=== PATIENT | male | born 1985 | race Two or more races ===

== ENCOUNTER 2025-02-01 07:14 | Emergency (ER) | payer SELFPAY ==
--- NOTE | 2025-02-01 07:16 | ED_ITS ---
HPI - General Adult General Chief complaint: Allergic Reaction Stated complaint: Bee sting 1-2 hrs ago, allergy. Time Seen by Provider: 02/01/25 07:16 Source: patient Mode of arrival: ambulatory Limitations: no limitations History of Present Illness ED Provider: Gosia Robles PA-C HPI narrative: Patient is a 39 year old assigned male at with a history of allergic reactions to bee stings presenting to the emergency department today after a bee sting. Patient states that there was a bee in his window sill and he got stung on his right elbow. Patient states that he is having some scratchiness in his throat and he did have to use an epi pen for this as a child. Patient states that the sting happened 2 hours ago. Patient denies any other complaints at this time. Related Data Previous Rx's ?Medication ?Instructions ?Recorded epinephrine 0.3 mg/0.3 mL 0.3 mg (0.3 mL) IM Q10M PRN 02/01/25 injection, auto-injector anaphylaxis #2 ea prednisone 20 mg tablet 40 mg (2 x 20 mg) PO DAILY C OPD 02/01/25 exacerbation 5 days #10 tabs Allergies Allergy/AdvReac Type Severity Reaction Status Date / Time bee pollen (Bee Stings) Allergy Unknown SWELLING Verified 02/01/25 07:22 Review of Systems Constitutional: Constitutional: Reports as per HPI Eyes: Eyes: Reports as per HPI ENT: Reports as per HPI Cardiovascular: Cardiovascular: Reports as per HPI Respiratory: Respiratory: Reports as per HPI Gastrointestinal: Gastrointestinal: Reports as per HPI Genitourinary: Genitourinary: Reports as per HPI Musculoskeletal: Musculoskeletal: Reports as per HPI Integumentary/Breasts: Skin/Breast: Reports as per HPI Neurologic: Reports as per HPI Psychiatric: Psychiatric: Reports as per HPI Endocrine: Endocrine: Reports as per HPI Hematologic/Lymphatic: Hematologic/Lymphatic: Reports as per HPI Allergic/Immunologic: Allergic/Immunologic: Reports as per HPI ON LICENSE OF [facility] Past Medical History Attestation statement: The following information was validated with the patient. Source: old records reviewed and nursing notes reviewed Social History Social History Smoked in Last 30 Days: Yes Use of substances other than those prescribed or required for medical reasons: No Advance Directives: No Advance Directives Information Provided: Yes Physical Exam ED Vital Signs: Vital Signs - 24 hr 02/01/25 07:20 02/01/25 08:33 02/01/25 08:43 Temperature 97.7 F 98.1 F 98.1 F Pulse Rate 103 H 81 81 Respiratory Rate 16 18 18 Blood Pressure 155/93 H 134/88 134/88 Pulse Oximetry 97 97 97 Oxygen Delivery Method Room Air Room Air Room Air BMI result Body Mass Index 26.4 Const General: cooperative, no acute distress, alert and awake Nutritional Appearance: well nourished Orientation/consciousness: patient oriented x3 HENMT Head: Yes normal to inspection and Yes atraumatic Ears: hearing grossly normal bilaterally and external ears normal General nose exam: Normal external nose present, no nasal discharge noted and no epistaxis Face and sinus: Yes normal facial exam, No abrasion and No laceration Mouth: Normal oral and palatal mucosa present, no drooling and no muffled voice Eyes General: appearance normal, both eyes and all related structures Periorbital: periorbital findings normal Eyelids: Yes eyelids normal Conjunctivae: conjunctivae normal Pupils: Equal, round and reactive pupils present EOM: EOMs intact bilaterally Neck Neck: Yes normal visual inspection and Yes full ROM Resp Effort & Inspection: normal respiratory effort and able to speak in complete sentences Neuro General: patient oriented x3, moves all extremities and CN's II-XI intact bilaterally Cranial nerves: Yes Equal, round and reactive pupils present Cognition (Neuro): normal cognition Extrem Other: minimal swelling present to the right medial elbow General: Yes full ROM and Yes capillary refill normal Psych Appearance: grossly normal Mental Status: mental status grossly normal Affect: normal affect Attitude: cooperative Thought process: Normal thought process present Thought content: Normal thought content present Insight: Good insight present (Psych) Medications Administered Discontinued Medications Generic Name Dose Route Start Last Admin Trade Name Freq PRN Reason Stop Dose Admin Diphenhydramine HCl 25 mg 02/01/25 07:21 02/01/25 08:03 Diphenhydramine Hcl 25 Mg Capsule PO 02/01/25 07:22 25 mg ONCE ONE Administration Famotidine 20 mg 02/01/25 07:21 02/01/25 08:03 Famotidine 20 Mg Tablet PO 02/01/25 07:22 20 mg ONCE ONE Administration Methylprednisolone Sodium Succinate 60 mg 02/01/25 07:21 02/01/25 08:03 Methylprednisolone Sod Succ 125 Mg/2 Ml Vial IM 02/01/25 07:22 60 mg ONCE ONE Administration Medical Decision Making Medical Decision Making MDM Narrative: Patient is a 39 year old assigned male at with a history of allergic reactions to bee stings presenting to the emergency department today after a bee sting. Patient's physical exam was as noted in the physical exam portion of this note. Patient's airway was patent, tolerating secretions well, no evidence of swelling in the mucous membranes. I explained my physical exam findings to the patient. I answered all questions asked by the patient. Patient received IM solu-medrol, PO famotidine, and PO Benadryl which, upon re- evaluation, he stated it helped his symptoms. Patient was monitored for 1 hour and did not have any evidence of rebound or worsening symptoms. I stressed the importance of the patient taking his medication as directed (either prescribed or as the over the counter packaging recommends). I stressed the importance of the patient following up with his primary care provider. I stressed the importance of the patient returning to the emergency department immediately if his symptoms were to worsen or if he were to develop any dizziness, shortness of breath, difficulty breathing, chest pain, blurry vision, loss of vision, nausea, vomiting, abdominal pain, fever, chills, back pain, or any other complaints. Patient verbalized agreement and understanding with this treatment plan and discharge. Differential Diagnosis Differential Diagnoses: The differential diagnosis associated with the presentation includes Bee sting Localized allergic reaction Allergic reaction Admission/Observation Consideration of admission/observation: Escalation of care including admission/observation considered Patient would have been admitted to the hospital had his clinical presentation warranted hospital admission. Discharge Plan Discharge Clinical Impression: Allergic reaction Patient Disposition: Home, Self-Care Instructions: General Allergic Reaction (ED) Additional Instructions: You've been prescribed an epi-pen, PLEASE KEEP THIS WITH YOU AT ALL TIMES. IF you are prescribed home medications and/or you are taking over the counter medications at home - it is very important you continue to do so as prescribed / directed unless told otherwise. Follow up with a primary care provider. Return to the emergency department immediately if your symptoms worsen or if you develop any numbness, tingling, dizziness, shortness of breath, difficulty breathing, chest pain, blurry vision, loss of vision, nausea, vomiting, abdominal pain, fever, chills, back pain, or any other complaints. If you do not have a primary care provider - call any of the below numbers to establish and follow up with a primary care provider. [facility] Primary Care ([place]) [phone] [place] [address], [address] [facility] Primary Care ([address] [place]) [phone] [place] [address], [address] [facility], [address] [facility] Primary Care ([address] [place]) [phone] [place] [address], [address] [facility], [address] [facility] Primary Care ([place]) [phone] [place] [address] [address] [facility], [address] [facility] Family Medicine [phone] [place] [address], [address] Please see the information below about our Patient Portal. If you are not yet enrolled in the [facility] Patient Portal, you will receive an enrollment email invitation following your visit to any [facility] setting. You may also self-enroll in the Patient Portal by visiting our website: [email or web address] The following information is required to access the Patient Portal: - Your [facility] Medical Record Number - Your personal home email address (must match what is in your electronic medical record, Registration staff can assist with this) - Name - Date of Capabilities of the Patient Portal: - Message some providers - View upcoming appointments - Access your health summary, medical history, and visit history - View current conditions and allergies - View procedure and lab results - View your medications, including guidelines, side effects, and precautions - Complete pre-appointment questionnaires requested by your provider - Ready summary reports of your office visits and procedures To access the Patient Portal Mobile Ar, follow these directions: - Search [employer] in the Ar Store or [employer] Store - Download the Ar - Search for [facility] - Enter your login/password Prescriptions: New prednisone 20 mg tablet 40 mg PO DAILY 5 Days Qty: 10 0RF epinephrine 0.3 mg/0.3 mL auto-injector 0.3 mg IM Q10M PRN (Reason: anaphylaxis) Qty: 2 0RF Rx Instructions: for 2 doses Interventions: ED Discharge Assessment Last Done: 02/01/25 08:43 Discharge Date/Time: 02/01/25 08:45 Print Language: Amharic
[2025-02-01 07:20] VITALS: BP 155/93; PULSE 103; RESP 16; TEMP 36.5; O2SAT 97; BMI 26.4
--- OUTSIDE RECORDS SUMMARY | 2025-02-01 07:46 | XMS_ITS | Clinical Summary ---
Author Organization [facility] Address [address] [address] Phone Care Team Providers Care Card Brusher Name Role Phone Domonique Oliver Primary Care Provider [phone] Social History Tobacco Use Types Packs/Day Years Used Date Smoking Tobacco: Never Assessed Education Answer Date Recorded Are you interested in more education? Not on karen e 08/14/2022 Are you concerned about learning? Not on file 08/14/2022 No 08/14/2022 No 08/14/2022 Digital Access Answer Date Recorded No 09/14/2022 No 09/14/2022 Reliable internet access at home? Not on file 09/14/2022 Device with a working camera? Not on file Sex and Gender Information Value Date Recorded Sex Assigned at Not on file Legal Sex Male 2:51 PM EDT Gender Identity Not on file Sexual Orientation Not on file Plan of Treatment Not on file Medical Devices Not on file Insurance [facility] C3 ACO C3 ACO C3 ACO C3 ACO C3 ACO C3 ACO [place] [address] [place] [address] [place] [address] Care Teams Card Brusher Relationship Specialty Start Date End Date Domonique Oliver PA [address] [place] [address]. [place] [address] [email or web address] PCP - General 07/31/20 Additional Source Comments The information contained in this document represents components of the legal health record. It is not the complete legal health record.[facility]
--- OUTSIDE RECORDS SUMMARY | 2025-02-01 07:46 | XMS_ITS | Clinical Summary ---
Author Organization [employer] Address [address] [place] [address] [address] [place] [address] Care Team Providers Care Well Service Derrick Worker Name Role Phone Paula Martinezzabeth RUBI Primary Care Provider Un available Allergies Active Allergy Reactions Criticality Noted Date Comments Bee Venom 07/22/2022 Other reaction(s): Unknown Medications methadone (Dolophine) 10 MG/5ML solution Take 38 mL by mouth in the morning. Active EPINEPHrine (Epipen) 0.3 MG/0.3ML injection syringe as directed Injection Active Active Problems No known active problems Immunizations Immunization Administration Dates Next Due Influenza, IIV3, injectable 01/25/2020 Td (adult), 5 Lf tetanus tox oid, preservative free, adsorbed 09/14/2015 Family History Medical History Relation Name Comments No Known Problems Brother 1 No Known Problems Brother 2 Diabetes Maternal Grandfather MGF-DM2 , from [place] age Heart attack Maternal Grandfather Coronary artery disease Maternal Grandmother Heart attack Maternal Grandmother htn Maternal Grandmother had HTN and CAD, from [place] htn Mother No Known Problems Sister Relation Name Status Comments Brother 1 Alive Brother 2 Alive Maternal Grandfather Maternal Grandmother Mother Alive Sister Alive Social History Tobacco Use Types Packs/Day Years Used Date Smoking Tobacco: Every Day Cigarettes Smokeless Tobacco: Former Tobacco Cessation:Ready to Q uit: Not Asked Alcohol Use Standard Drinks/Week Comments Not Currently 0 (1 standard drink = 0.6 oz pur e alcohol) no Hx of alcoholism, Depression Answer Date Recorded Patient Health Questionnaire-9 Score 16 07/22/2022 Housing Stability Answer Date Recorded What is your housing situation today? I have nu fernandez 02/15/[address] you li ve. Do you have problems with any of the following? None of the above 02/15/2023 Food Insecurity Answer Date Recorded Within the past 12 months, y ou worried that your food would run out before you got money to buy more: Never True 02/15/2023 Within the past 12 months,th e food you bought just didn't last and you didn't have enough money to get more: Never True Transportation Answer Date Recorded In the past 12 months, has l ack of transportation kept you from medical appts, meetings, work or from getting things needed for daily living? No 02/15/2023 Utilities Answer Date Recorded In the past 12 months, has t he electric, gas, oil or water company threatened to shut off services in your home? No 02/15/2023 Depression Answer Date Recorded Patient Health Questionnaire-2 Score 3 07/22/2022 Sex and Gender Information Value Date Recorded Sex Assigned at Male 02/16/2022 5:38 PM EDT Legal Sex Male 8:39 PM EDT Gender Identity Male 07/19/2022 4:40 PM EDT Sexual Orientation Choose not to disclose 2022 4:40 PM EDT Occupation Industry Job Start Date Job End Date [employer] Not on file Not on file Not on file Last Filed Vital Signs Vital Sign Reading Time Taken Comments Blood Pressure 120/76 07/22/2022 11:06 AM EDT Pulse 95 07/22/2022 11:06 AM EDT Temperature - - Respiratory Rate 16 07/22/2022 11:06 AM EDT Oxygen Saturation 97% 09/11/2020 12:15 PM EDT Inhaled Oxygen Concentration - - Weight 78.9 kg (174 lb) 07/22/2022 11:06 AM EDT Height 170.2 cm (5' 7 ) 07/22/2022 11:06 AM EDT Body Mass Index 27.25 07/22/2022 11:06 AM EDT Plan of Treatment Health Maintenance Due Date Last Done Comments HIV Screening 1987 Lipid Panel 1987 Disability Screening 1987 Alcohol/Substance Use Screening 1999 Family Planning (PISQ) 2002 HPV Vaccines (1 - Male 3-dos e series) 2002 Hepatitis C Screening 2005 Hepatitis B Vaccines (1 of 3 - 19+ 3-dose series) 2006 Pneumococcal Vaccine: Pediatrics (0 to 5 Years) and At-Risk Patients (6 to 49) Years (1 of 2 - PCV) 2006 DTaP/Tdap/Td Vaccines (1 - Tdap) 09/15/2015 09/14/2015 Depression Monitoring 01/21/2023 07/22/2022 , 07/22/2022 SDOH Screening 07/23/2023 07/22/2022 Tobacco Screening 07/23/2023 07/22/2022 COVID-19 Vaccine (1 - 2023-2 5 season) 2024 Influenza Vaccine (#1) 2024 01/25/2020 Zoster Vaccines (1 of 2) 2037 RSV Patients and Patients Aged 60 years or older (1 - 1-dose 75+ series) 2062 HIB Vaccines Aged Out No longer eligi ble based on patient's age to complete this topic Hepatitis A Vaccines Aged Out No long er eligible based on patient's age to complete this topic IPV Vaccines Aged Out No longer eligi ble based on patient's age to complete this topic Meningococcal B Vaccine Aged Out No l onger eligible based on patient's age to complete this topic Meningococcal Vaccine Aged Out No sushil krissy eligible based on patient's age to complete this topic RSV under 20 months Aged Out No longe r eligible based on patient's age to complete this topic Rotavirus Vaccines Aged Out No longer eligible based on patient's age to complete this topic Insurance [employer] C3 Care Teams Well Service Derrick Worker Relationship Specialty Start Date End Date Sisi Martinez FNP PCP - General Family Medicine 07/19/22
--- OUTSIDE RECORDS SUMMARY | 2025-02-01 07:46 | XMS_ITS | Encounter Summary ---
Author Organization [facility] Address [address] [place] [address] Phone Care Team Providers Care Bathroom Tiling Professional Name Role Phone Domonique Oliver Primary Care Provider [phone] Encounter Details Date Type Department Care Team (Late st Contact Info) Description 07/31/2020 Procedure Pass Non-Invasive Cardiology [address] [place] [address] Social History Tobacco Use Types Packs/Day Years Used Date Smoking Tobacco: Never Assessed Sex and Gender Information Value Date Recorded Sex Assigned at Not on file Legal Sex Male 2:51 PM EDT Gender Identity Not on file Sexual Orientation Not on file documented as of this encounter Plan of Treatment Not on file documented as of this encounter Visit Diagnoses Not on filedocumented in this encounter Care Teams Bathroom Tiling Professional Relationship Specialty Start Date End Date Domonique Oliver PA [address] [place] [phone] [email or web address] PCP - General 07/31/20 documented as of this encounter Additional Source Comments The information contained in this document represents components of the legal health record. It is not the complete legal health record.[facility]
--- NOTE | 2025-02-01 08:24 | PC.NURSE ---
pt is alert and oriented, skin appropriate for ethnicity, respirations even and unlabored, pt reports getting setting stung by a bee while in bed around 0500, hx of anaphylaxis reaction to bee according to the pt, today has right elbow swelling redness and a red raised bump on the left side of the neck
[2025-02-01 08:33] VITALS: BP 134/88; PULSE 81; RESP 18; TEMP 36.7; O2SAT 97
[2025-02-01 08:43] VITALS: BP 134/88; PULSE 81; RESP 18; TEMP 36.7; O2SAT 97
== END 2025-02-01 08:45 | disposition home or self-care (01) ==
PROVIDERS: Emergency Provider Emergency Medicine
DX: R09.89 Other specified symptoms and signs involving the circulatory and respiratory systems (principal); T63.441A Toxic effect of venom of bees, accidental (unintentional), initial encounter; Y92.9 Unspecified place or not applicable
CPT/HCPCS: 96372; 99284; J2919